=== PATIENT | male | born 1965 | race Caucasian/White ===

== ENCOUNTER 2023-10-09 06:57 | Day surgery (SDC) | payer OTHER ==
[~2023-10-09] VITALS: Ht 182.9 cm; Wt 104.1 kg
[~2023-10-09 06:57] MED LIST: ACET325 PO; AMIT25 PO; AMLO5 PO; ASPIR 8181 M1 PO; ATOR40TA PO; BUTALB-ACETAMI1 EAC6 PO; CEPH500 PO; CYCL10 PO; HYDACE5 PO; IBU800 MG PO; METO100ER PO; Norco 5-325 Ta1 EACH PO; PENVK500 PO; TOPI100 PO; Triamcinolone A15 G3 TOP
[2023-10-09] MEDS ORDERED: NITR.4SL SL (08:05)
[2023-10-09] MEDS ORDERED: PANT40 PO (08:06)
[2023-10-09 08:14] VITALS: BP 135/80
[2023-10-09] MEDS ORDERED: NS 250 ML IV ONE (08:25)
[2023-10-09] MEDS ORDERED: Verapamil HCL 2.5 MG/ML 2ML Injection ONE (08:25)
[2023-10-09] MEDS ORDERED: Heparin Sodium 1000 Units/ML 10ML MDV ONE ×2 (08:25→09:00)
[2023-10-09] MEDS ORDERED: NS 1,000 ML IV ONE ×2 (08:25→08:28)
[2023-10-09] MEDS ORDERED: Nitroglycerin 2 MG/20 ML BTL ONE (08:26)
[2023-10-09] MEDS ORDERED: FentaNYL Citrate 50 MCG/ML 2 ML Injection ONE (08:28)
[2023-10-09] MEDS ORDERED: Midazolam HCl 1MG / ML 2ML Vial ONE (08:28)
--- NOTE | 2023-10-09 09:40 | NUR ---
PT BACK TO RECOVERY ROOM VIA RECLINER AFTER PROCEDURE. AWAKE AND ALERT, AND MOTHER ARE AT BEDSIDE. COFFEE GIVEN PER PT REQUEST. VSS, CALL LIGHT IN REACH.
--- NOTE | 2023-10-09 09:52 | NUR ---
DR RAMIREZ AT BEDSIDE SPEAKING WITH PT AND FAMILY ABOUT PROCEDURE RESULTS AND PLAN FOR CARE.
[2023-10-09] MEDS ORDERED: Isosorbide Mono30 MG PO (10:12)
[2023-10-09] MEDS ORDERED: Ibuprofen 400 MG Tab PO ONE (10:15)
--- NOTE | 2023-10-09 10:18 | NUR ---
RX FOR IMD[facility] CALLED INTO [facility] PER PT REQUEST.
--- NOTE | 2023-10-09 11:30 | NUR ---
IV DC'D, CATH INTACT. PT AND FAMILY GIVEN DC INSTRUCTIONS AND FOLLOW UP INFO, VERBALIZED UNDERSTANDING. RIGHT WRIST WITH CLOTH DOT DRESSING AND SPLINT IN PLACE. NO BLEEDING OR SWELLING NOTED TO SITE. PT OUT TO CAR VIA WHEELCHAIR, ACCOMPANIED BY FAMILY.
== END 2023-10-09 11:30 | disposition home or self-care (01) ==
LOC: MHTC 06:57
DX: I25.118 Atherosclerotic heart disease of native coronary artery with other forms of angina pectoris (principal); I10 Essential (primary) hypertension; E78.5 Hyperlipidemia, unspecified; Z79.899 Other long term (current) drug therapy
CPT/HCPCS: 76937; 85347; 93454; 93458; 93571; 99152; 99153; A9270; C1769; C1887; C1894; J1644; J2250; J3010; J7030; J7050; Q9967

== ENCOUNTER → 2025-03-11 | Outpatient (CLI) | payer OTHER ==
[~2025-03-11] MED LIST changes: +Isosorbide Mono30 MG PO; +NITR.4SL SL; +PANT40 PO
[2025-03-11 09:50] LABS: BASOPHILS ABSOLUTE AUTO 0.04 K/mm3 (0.00-0.23); BASOPHILS PERCENT AUTO 1 % (0-2); EOSINOPHILS ABSOLUTE AUTO 0.17 K/mm3 (0.00-0.68); EOSINOPHILS PERCENT AUTO 4 % (0-6); Hematocrit 41.8 % (37.0-53.0); Hemoglobin 13.4 g/dL (13.5-17.5); IMMATURE GRAN ABSOLUTE AUTO 0.01 K/mm3 (0.00-0.10); IMMATURE GRAN PERCENT AUTO 0 % (0-1); LYMPHOCYTES ABSOLUTE AUTO 1.51 K/mm3 (0.84-5.20); LYMPHOCYTES PERCENT AUTO 33 % (21-46); MONOCYTES ABSOLUTE AUTO 0.48 K/mm3 (0.16-1.47); MONOCYTES PERCENT AUTO 10 % (4-13); Mean Corpuscular HGB Conc 32.1 g/dL (31.5-36.5); Mean Corpuscular Volume 90 fL (80-100); NEUTROPHILS ABSOLUTE AUTO 2.41 K/mm3 (1.96-9.15); NEUTROPHILS PERCENT AUTO 52 % (41-73); NRBC ABSOLUTE 0.00 K/mm3 (0.00-0.02); NRBC Auto 0.0 /100 WBC (0.0-0.2); Platelet Count 220 K/mm3 (150-400); RDW Coefficient Variation 12.9 % (11.7-14.2); RDW Standard Deviation 42.4 fL (35.1-46.3)
[2025-03-11 09:59] LABS: Alanine Aminotransfer (ALT/SGP 64.0 U/L (12-78); Albumin, Blood 3.7 g/dL (3.4-5.0); Albumin/Globulin Ratio 1.0 (0.8-1.8); Anion Gap 13.0 mmol/L (3-11); Aspartate Aminotrans (AST/SGOT 25.0 U/L (12-37); Bilirubin, Total 0.4 mg/dL (0.1-1.0); Blood Urea Nitrogen 15.0 mg/dL (8-24); CO2, Blood 25.0 mmol/L (21-32); Calcium, Blood 8.9 mg/dL (8.5-10.1); Chloride, Blood 108.0 mmol/L (98-108); Creatinine, Blood 1.02 mg/dL (0.60-1.20); Globulin, Blood 3.8 g/dL (2.2-4.0); Glucose, Blood 158.0 mg/dL (70-99); Potassium, Blood 4.1 mmol/L (3.5-5.5); Sodium, Blood 142.0 mmol/L (136-145); Total Protein, Blood 7.5 g/dL (6.4-8.2)
== END ==
LOC: LAB 09:45 → LAB SHORT 09:45
PROVIDERS: Physician Assistant
DX: R10.A1 Flank pain, right side (principal)
CPT/HCPCS: 80053; 85025